=== PATIENT | female | born 1995 | race Two or more races ===

== ENCOUNTER 2021-11-26 07:06 | Emergency (ER) | payer OTHER ==
[~2021-11-26] VITALS: Ht 167.6 cm; Wt 91.6 kg
[2021-11-26] MEDS ORDERED: PRENATAL + DHA1 EAC1 (07:33)
== END 2021-11-26 12:57 | disposition home or self-care (01) ==
LOC: ER 07:06
DX: O98.512 Other viral diseases complicating pregnancy, second trimester (principal); Z3A.18 18 weeks gestation of pregnancy; Z88.0 Allergy status to penicillin; Z91.011 Allergy to milk products; Z88.8 Allergy status to other drugs, medicaments and biological substances; J45.909 Unspecified asthma, uncomplicated; Z20.822 Contact with and (suspected) exposure to COVID-19

== ENCOUNTER 2022-04-27 22:53 | Outpatient (CLI) | payer OTHER ==
[~2022-04-27 22:53] MED LIST: PRENATAL + DHA1 EAC1
== END 2022-04-27 23:32 | disposition left against medical advice (07) ==
LOC: OBS/DEL 22:53
PROVIDERS: ATTEND Specialist
DX: O26.893 Other specified pregnancy related conditions, third trimester (principal); Z3A.40 40 weeks gestation of pregnancy; R10.2 Pelvic and perineal pain

== ENCOUNTER 2024-09-04 08:45 | Inpatient (IN) | payer OTHER ==
[~2024-09-04] VITALS: Ht 168.9 cm; Wt 84.8 kg
[2024-09-06 10:45] VITALS: BP 98/58
[2024-09-10] MEDS ORDERED: CLINDAMYCIN PHOSPHATE 150 MG/ML (900mg) ONE (15:37)
[2024-09-10] MEDS ORDERED: POVIDONE-IODINE 118 ML BOTT TOP ONE (16:47)
[2024-09-10] MEDS ORDERED: LIDOCAINE HCL 1%/EPINEPHRINE 20ML VIAL IJ ONE (17:16)
[2024-09-10] MEDS ORDERED: BUPIVACAINE HCL/Mpf 0.5% 10ML VIAL ONE (17:16)
[2024-09-10] MEDS ORDERED: KETOROLAC TROMETHAMINE 60 MG VIAL IM NR (19:30)
[2024-09-10] MEDS ORDERED: MORPHINE SULFATE 4 MG/ML CARTRIDGE IV SCH (21:00)
[2024-09-10] MEDS ORDERED: KETOROLAC TROMETHAMINE 60 MG VIAL IM ONE (21:57)
[2024-09-10 22:28] VITALS: BP 128/74
[2024-09-10 23:47] LABS: HEMATOCRIT 42.5 % (36.0-45.00); MEAN CELL VOLUME 89.2 fL (80.00-100.00); MEAN CORPUSCULAR HEMOGLOBIN 29.4 pg (27.00-32.0); PLATELET COUNT 324 K/uL (150-450); RED BLOOD COUNT 4.76 M/uL (4.00-6.00); RED CELL DISTRIBUTION WIDTH 13.5 % (11.5-14.5)
[2024-09-11 00:45] VITALS: BP 116/63
[2024-09-11 08:00] VITALS: BP 110/70
[2024-09-11] MEDS ORDERED: SIMETHICONE 125 MG CAPSULE PO SCH (09:00)
[2024-09-11] MEDS ORDERED: IBUprofen 800 MG TABLET PO SCH (09:00)
[2024-09-11] MEDS ORDERED: DOCUSATE SODIUM 100MG CAP PO SCH (09:00)
[2024-09-11 16:14] VITALS: BP 104/64
== END 2024-09-11 18:57 | disposition home or self-care (01) | DRG 743 ==
LOC: SURH 09-10 07:00 → O/R 09-10 10:45 → OB/GYN 09-10 19:12
PROVIDERS: ADMIT Specialist; ATTEND Specialist
PROC: 0UT7FZZ Resection of Bilateral Fallopian Tubes, Via Natural or Artificial Opening With Percutaneous Endoscopic Assistance (ICD-10-PCS; 2024-09-10)
PROC: 0UT9FZZ Resection of Uterus, Via Natural or Artificial Opening With Percutaneous Endoscopic Assistance (ICD-10-PCS; principal; 2024-09-10 07:00)
DX: N87.0 Mild cervical dysplasia (principal); N72 Inflammatory disease of cervix uteri